=== PATIENT | female | born 1950 | race Caucasian/White ===

== ENCOUNTER → 2017-03-03 | Outpatient (CLI) | payer MEDICAID ==
[~2017-03-03] MED LIST: ANUSOL-HC30 GM TOP; COUMADIN4 MG PO; COUMADIN5 MG PO; LANTUS100 UNIT/1 SUBCUT; LIPITOR40 MG PO; PROVENTIL HFA6.7 GM INH; SPIRIVA RESPIMAT4 GM INH; SYMBICORT 160-4.6 GM INH; ULTRAM50 MG PO
== END | disposition short-term general hospital (02) ==
LOC: CLCARD 04:50
DX: I50.20 Unspecified systolic (congestive) heart failure (principal); J44.9 Chronic obstructive pulmonary disease, unspecified; I42.9 Cardiomyopathy, unspecified; I34.0 Nonrheumatic mitral (valve) insufficiency; E78.5 Hyperlipidemia, unspecified; E11.9 Type 2 diabetes mellitus without complications; I48.91 Unspecified atrial fibrillation